=== PATIENT | female | born 1990 | race Caucasian/White ===

== ENCOUNTER 2016-08-08 12:01 | Inpatient (IN) | payer OTHER ==
--- NOTE | ~2016-08-08 | PA ---
Unit #: [id number] #: [id number] Patient: TYSON COSBY [id number] [place] [address] [id number] MR#: [id number] NAME: TYSON COSBY ROOM: P174 Age: 26 Sex: F Admission Date: 08/08/2016 : 1990 Date of Assessment: 08/08/2016 Attending Physician: Joseluis Jackson M.D. Admitting Physician: Joseluis Jackson M.D. PSYCHIATRIC ASSESSMENT IDENTIFYING INFORMATION The patient is a 26-year-old single white female admitted with a history of internasal heroin abuse as well as abuse of benzodiazepines. INFORMANT(S) The patient, reliability is fair. CHIEF COMPLAINT I don't want to be here HISTORY OF PRESENT ILLNESS The patient is a 26-year-old white female admitted to the [facility] unit with a history of abuse of heroin by means of nasal insufflation and Klonopin. The patient reportedly took six Klonopin this morning in which she describes as a suicide attempt though she is now recanted the suicidal threats. The patient reports history of one previous suicide attempt by means of polypharmacy overdose was not treated thereafter. Additionally the patient engages in self-mutilating behavior and exhibits fresh cuts on her right wrist today. The patient reports that she came at the (1)___ of her family after her recent relapse of heroin abuse because of this the father of her out of wedlock three year old daughter is now seeking full custody of the child. The patient claiming that "he was just waiting for me to fall." The patient reports a history of one previous psychiatric inpatient treatment course at [facility]. She reports that she is not previously followed by a psychiatrist. Her intake indicates that she has been prescribed Klonopin, Adderall and Neurontin by her primary care physician. The patient is presently unemployed. She lives with her father. The patient is currently denying suicidal or homicidal ideation. She denies recent changes of sleep or appetite. She is somewhat irritable during interview but seems to become a bit more positive as interview progresses. PAST PSYCHIATRIC HISTORY As above. PAST MEDICAL HISTORY Noncontributory. MEDICATIONS As above. ALLERGIES None reported. Unit #: [id number] #: [id number] Patient: TYSON COSBY FAMILY HISTORY Noncontributory. SOCIAL HISTORY The patient lives with her father. She completed one semester of college at [employer]. She reports substance use as noted previously stating that she has been using substances since the age of 14. MENTAL STATUS EXAM At this time reveals the patient to be well-developed, well-nourished white female appearing her stated age. She is in no apparent physical distress at the time of this examination. She is awake and alert in all spheres. Her mood is mildly dysphoric. Her affect constricted. Speech is generally relevant coherent. There are no gross deficits to memory or cognition noted. Intelligence is judged to be in the average range based on fund of knowledge. The patient is cooperative throughout the interview. She is currently reporting no suicidal or homicidal ideation or psychotic features. Judgement and insight appear to be intact. ASSETS AND LIABILITIES ASSETS: Motivation to be assessed. LIABILITIES: Lack of investment of treatment. DIAGNOSTIC IMPRESSION 1. Opioid use disorder 2. Sedative hypnotic use disorder 3. Borderline personality traits versus disorder 4. Status post clonazepam ingestion TREATMENT PLAN The patient remains hospitalized for safety and stabilization. We will institute routine detoxification protocol for opioids and benzodiazepines and suicidal precautions are in place as the patient did initially report that she had attempted suicide this morning by means of Klonopin overdose. The patient reports will participate in appropriate meek and milieu activities and a [address] as the patient demanded to leave the hospital shortly after her admission had begun. ESTIMATED LENGTH OF STAY Three days. Dictated by... Joseluis Jackson M.D. POLY/brian TD: 08/08/2016 23:27 JOB #: [id number] Unit #: [id number] #: [id number] Patient: TYSON COSBY PSYCHIATRIC ASSESSMENT Page 1 of 1 X Joseluis Jackson MD X PSYCHIATRIC ASSESSMENT
--- NOTE | ~2016-08-08 | DS ---
Unit #: [id number] #: [id number] Patient: TYSON COSBY [id number] [place] [address] [id number] MR#: [id number] NAME: TYSON COSBY. ROOM: [facility] Age: 26 Sex: F Admission Date: 08/08/2016 : 1990 Discharge Date: 08/09/2016 Attending Physician: Joseluis Jackson M.D. DISCHARGE SUMMARY REASON FOR ADMISSION The patient is a 26-year-old single white female, admitted to the [facility] unit for opioid detox. She had voiced suicidal ideation on admission. HOSPITAL COURSE The patient was admitted to this [address] [place] [address] unit after had been placed on a 72-hour hold. The patient had demanded discharge from the hospital and recanted her suicidal thinking; however, given threats made, a decision was made to go for the 72-hour hold. The patient was initially irritable and unhappy about her hospitalization, but was generally pleasant and cooperative with interactions with peers and staff, though her participation in therapeutic milieu left much to be desired. She vehemently denied suicidal ideation on 08/09/2016 and requested discharge. At that time, she exhibited no signs or symptoms of withdrawal. As per her request, discharge was ordered. FINAL DIAGNOSIS Opioid use disorder. DISPOSITION ON DISCHARGE The patient is discharged on no psychotropic or other medications. FOLLOWUP Followup will take place in the chemical dependency intensive outpatient program provided by this facility. PROGNOSIS The patient's prognosis is considered fair. Dictated by... Joseluis Jackson M.D. CB/kem TD: 08/10/2016 03:42 JOB #: [id number] Unit #: [id number] #: [id number] Patient: TYSON COSBY DISCHARGE SUMMARY Page 1 of 1 X Joseluis Jackson MD X DISCHARGE SUMMARY
--- NOTE | ~2016-08-08 | CO ---
Unit #: [id number] #: [id number] Patient: TYSON COSBY [id number] [place] [address] [id number] I MR#: [id number] NAME: TYSON COSBY ROOM: P174 Age: 26 Sex: F Admission Date: 08/08/2016 : 1990 Attending Physician: Joseluis Jackson M.D. Consultation Date: 08/08/2016 CONSULTATION REPORT SUBJECTIVE Tyson is a 26-year-old with history of snorting heroin. At time of admission she complained of some sinus congestion. 24 hours into her detox she is more alert and more pleasant and has no complaints of sinus congestion. She further has no complaints of discolored nasal discharge and there have been no recording increased temperatures. ASSESSMENT Nasal congestion most likely secondary to her snorting heroin. PLAN No Rx at this time. Dictated by... Mayelin Fu P.A.-C. for Holly Byrd/brian TD: 08/09/2016 21:17 JOB #: [id number] CONSULTATION REPORT Page 1 of 1 X Mayelin Fu CONSULTATION REPORT
--- NOTE | ~2016-08-08 | HP ---
Unit #: [id number] #: [id number] Patient: TYSON COSBY [id number] [place] [address] [id number] I MR#: [id number] NAME: TYSON COSBY. ROOM: P174 Age: 26 Sex: F Admission Date: 08/08/2016 : 1990 Attending Physician: Joseluis Jackson M.D. Admitting Physician: Joseluis Jackson M.D. HISTORY AND PHYSICAL HISTORY OF PRESENT ILLNESS Tyson is a 26 year old admitted to [facility] because of her polysubstance abuse which includes benzodiazepines and heroin. She is belligerent, foul mouth and uncooperative so her history is taken from her chart and exam is limited. PAST MEDICAL HISTORY History of illicit substance abuse to include heroin and abusing benzodiazepines. PAST SURGICAL HISTORY Nothing reported. ALLERGIES No known drug allergies. SOCIAL HISTORY Smokes one pack per day. Drinks alcohol on occasion. Uses heroin on a daily basis and abuses benzodiazepines. FAMILY HISTORY Medically noncontributory. REVIEW OF SYSTEMS She refuses to answer any questions. CURRENT MEDICATIONS Detox protocol PHYSICAL EXAMINATION GENERAL: Alert, well-nourished, belligerent otherwise no apparent distress. VITAL SIGNS: Blood pressure 100/68, heart rate 84, respirations 16, temperature 98.6. WEIGHT: 158 pounds. HEIGHT: 5'11". SKIN: Patient refuses. HEENT: Patient refuses. NECK: Patient refuses. HEART: Patient refuses. LUNGS: Patient refuses. Unit #: [id number] #: [id number] Patient: TYSON COSBY ABDOMEN: Patient refuses. : Patient refuses. EXTREMITIES: Moves all extremities without focal deficit. Gait not observed. NEUROLOGICAL: Patient refuses. Phonation is adequate especially when she is telling me to "F off". IMPRESSION 1. Psychiatric admission 2. Poly illicit substance abuse RECOMMENDATIONS PSYCHIATRIC: Per psychiatrist. MEDICAL: I see no contraindications to participating in facility's activities. MEDICAL PROGNOSIS Good. MEDICAL CONDITION Stable. Dictated by... Mayelin Fu P.A.-C. for Holly Byrd/brian TD: 08/09/2016 03:16 JOB #: [id number] HISTORY AND PHYSICAL Page 1 of 1 X Mayelin Fu HISTORY AND PHYSICAL
[2016-08-09 09:33] LABS: BASOPHIL% 0.6 % (0-2.5); EOSINOPHIL# 0.2 X10e3 (0-0.7); EOSINOPHIL% 2.7 % (0.0-7.0); HEMATOCRIT 43.1 % (35.0-45.0); HEMOGLOBIN 14.5 gm/dL (12.0-16.0); LYMPHOCYTE% 28.3 % (17.0-45.0); MEAN CELL VOLUME 89.8 FL (83-96); MEAN CORPUSCULAR HEMOGLOBIN 30.2 PG (28-34); MEAN CORPUSCULAR HGB CONC 33.6 g/dL (30-36); MEAN PLATELET VOLUME 8.9 FL (6.5-11.5); MONOCYTE# 0.6 X10e3 (0-1.0); MONOCYTE% 8.6 % (3.0-12.0); NEUTROPHIL# 4.1 X10e3 (1.5-7.1); NEUTROPHIL% 59.8 % (40-75); PLATELET COUNT 180 X10e3 (140-420); RED CELL DISTRIBUTION WIDTH 13.9 % (11.0-15.5); WHITE BLOOD COUNT 6.9 X10e3 (4.0-10.5)
[2016-08-09 09:33] LABS: URINE APPEARANCE CLOUDY; URINE BLOOD NEG (NEG); URINE COLOR YELLOW; URINE GLUCOSE NORM (NORM); URINE KETONE NEG (NEG); URINE LEUKOCYTE ESTERASE 1+ (NEG); URINE NITRATE NEG (NEG); URINE PROTEIN 1+ (NEG); URINE UROBILINOGEN 4 MG/DL (NORM)
[2016-08-09 09:36] LABS: URINE BILIRUBIN NEG (NEG)
[2016-08-09 09:39] LABS: DIFF IND NO
[2016-08-09 10:07] LABS: AMPHETAMINE NEG (NEG); BARBITURATES NEG (NEG); BENZODIAZEPINES POS (NEG); COCAINE POS (NEG); MARIJUANA NEG (NEG); OPIATES POS (NEG); TRICYCLIC ANTIDEPRESSANTS NEG (NEG); U METHADONE NEG (NEG)
[2016-08-09 10:18] LABS: THYROID STIMULATING HORMONE 0.49 uIU/ml (0.34-5.60)
[2016-08-09 10:25] LABS: FREE THYROXIN (T4) 0.68 ng/dL (0.58-1.64)
[2016-08-09 10:38] LABS: ALBUMIN SERUM 4.2 g/dL (3.5-5.0); BILIRUBIN,TOTAL 0.9 mg/dL (0.2-2.0); CALCIUM SERUM 9.7 mg/dL (8.4-10.2); CREATININE SERUM 0.8 mg/dL (0.6-1.4); GLOM FILT RATE Estimated 102.6 mL/min (>60); PROTEIN TOTAL SERUM 7.1 g/dL (6.0-8.3)
== END 2016-08-09 14:50 | disposition home or self-care (01) | DRG 897 ==
LOC: P1E 12:01
PROVIDERS: Specialist
PROC: HZ2ZZZZ Detoxification Services for Substance Abuse Treatment (ICD-10-PCS; principal; 2016-08-08)
DX: F11.10 Opioid abuse, uncomplicated (principal); R45.851 Suicidal ideations; F13.10 Sedative, hypnotic or anxiolytic abuse, uncomplicated; F60.3 Borderline personality disorder; F17.210 Nicotine dependence, cigarettes, uncomplicated
CPT/HCPCS: 80053; 80307; 81003; 84439; 84443; 84703; 85025; 86592